=== PATIENT | female | born 1965 | race Caucasian/White ===

== ENCOUNTER 2016-08-11 03:57 | Emergency (ER) | payer MEDICAID ==
[~2016-08-11] VITALS: Ht 154.9 cm; Wt 70.5 kg
[2016-08-11 04:01] VITALS: Ht 154.9 cm; Wt 70.5 kg
[2016-08-11] MEDS ORDERED: CYCLOBENZAPRINE 10 MG TAB PO ONE (04:30)
[2016-08-11] MEDS ORDERED: HYDROCODONE/APAP (5/325) TAB PO ONE (04:30)
[2016-08-11] MEDS ORDERED: IBUP-1542 PO ×2 (04:31→05:02)
--- NOTE | 2016-08-11 04:34 | ERD ---
ER Documentation Chief Complaint Date/Time DATE: 08/11/16 TIME: 04:30 Chief Complaint C/O LOWER BACK PAIN SINCE THURSDAY HPI 51-year-old female presents here in emergency department for complaint of lower back pain started 4 days ago. Patient describes the pain as throbbing pain, 6/ 10 scale, is accompanied with muscle spasms. Patient states it is worse upon movement. Patient denies any numbness or tingling. Patient denies any incontinence. Patient ate any trauma and affected area. Patient denies any hematuria or dysuria. Patient denies any abdominal pain. Patient denies any nausea vomiting. Patient denies any constipation. Patient took ibuprofen for pain with mild relief. ROS All systems reviewed and are negative except as per history of present illness. Medications Home Meds Active Scripts Cyclobenzaprine Hcl* (Cyclobenzaprine Hcl*) 10 Mg Tablet, 10 MG PO TID, #15 TAB Prov:TODD JEFFERS WRAPPER SIZER 08/11/16 Ibuprofen* (Motrin*) 600 Mg Tab, 600 MG PO Q6H Y for PAIN AND OR ELEVATED TEMP, #30 TAB Prov:TODD JEFEFRS WRAPPER SIZER 08/11/16 Hydrocodone/Acetaminophen ([place] 5-325 Tablet) 1 Each Tablet, 1 TAB PO Q6H Y for PAIN, #20 TAB Prov:TODD JEFFERS WRAPPER SIZER 08/11/16 Reported Medications Ibuprofen* (Motrin*) Unknown Strength Tab, PO Q6H Y for PAIN AND OR ELEVATED TEMP, #30 TAB 08/11/16 Allergies Allergies: Coded Allergies: No Known Drug Allergies (Verified Allergy, Unknown, 09/04/15) PMhx/Soc History of Surgery: Yes ( section) Anesthesia Reaction: No Hx Neurological Disorder: No Hx Respiratory Disorders: No Hx Cardiac Disorders: No Hx Psychiatric Problems: No Hx Miscellaneous Medical Probl: No Hx Alcohol Use: No Hx Substance Use: No Hx Tobacco Use: No FmHx Family History: No coronary disease, No diabetes, No other Physical Exam Vitals Vital Signs Date Time Temp Pulse Resp B/P Pulse Ox O2 Delivery O2 Flow Rate FiO2 08/11/16 04:01 98.4 77 20 113/61 98 Physical Exam GENERAL: The patient is well developed and appropriate for usual state of health, in no apparent distress. CHEST: Clear to auscultation bilaterally. There are no rales, wheezes or rhonchi. HEART: Regular rate and rhythm. No murmurs, clicks, rubs or gallops. No S3 or S4. ABDOMEN: Soft, nontender and nondistended. Good bowel sounds. No rebound or guarding. No gross peritonitis. No gross organomegaly or masses. No Torres sign or McBurney point tenderness. BACK: No midline or flank tenderness. Muscle spasms noted in the paraspinal aspect of the lumbar spine. Patient is able to do full range of motion without any restriction. EXTREMITIES: Equal pulses bilaterally. There is no peripheral clubbing, cyanosis or edema. No focal swelling or erythema. Full range of motion. Grossly neurovascularly intact. NEURO: Alert and oriented. Cranial nerves 2-12 intact. Motor strength in all 4 extremities with 5/5 strength. Sensation grossly intact. Normal speech and gait. SKIN: There is no apparent rash or petechia. The skin is warm and dry. HEMATOLOGIC AND LYMPHATIC: There is no evidence of excessive bruising or lymphedema. No gross cervical, axillary, or inguinal lymphadenopathy. Results 24 hrs Laboratory Tests Test 08/11/16 04:44 Bedside Urine Blood Trace-intact Bedside Urine Glucose (UA) Negative Bedside Urine Ketones (LAB) Negative Bedside Urine Leukocyte Esterase (L Negative Bedside Urine Nitrite (LAB) Negative Bedside Urine Protein (LAB) Negative Bedside Urine pH (LAB) 6.0 Current Medications Medications (Trade) Dose Ordered Sig/Leandro Route PRN Reason Start Time Stop Time Status Last Admin Dose Admin Acetaminophen/ Hydrocodone Bitart ([place] (5/325)) 1 tab ONCE ONCE PO 08/11/16 04:30 08/11/16 04:32 DC 08/11/16 04:48 Cyclobenzaprine HCl (Flexeril) 10 mg ONCE ONCE PO 08/11/16 04:30 08/11/16 04:32 DC 08/11/16 04:48 Patient was given medication for pain here in emergency department, after treatment, patient verbalized feeling much better. Patient's pain is improved. Flexeril was given for muscle spasms. Urine test is negative. Procedures/MDM Medical Decision Making: Patient's pain is most likely consistent with a back muscle strain. There is no suspicion for neurovascular compromise. Patient has intact sensation and circulation of the affected extremity. There is low suspicion for septic arthritis. Patient does not have any fever. Radiology exam is not indicated at this time, patient did not have any injury in the back. MRI outpatient is appropriate it continues to persist.no symptoms of acute bacterial infection, epidural hematoma, epidural abscess, in order equinus syndrome. No symptoms of incontinence. Disposition: Home. Patient is given prescription for ibuprofen for pain, [place] for severe pain, Flexeril for muscle spasms. Patient was advised to avoid heavy lifting, rest, warm compresses in the back. Patient was advised that if symptoms are worse, numbness, tingling, high fever, unable to move joint, worsening symptoms, to return to emergency department immediately. Otherwise, patient is advised to follow up with the primary care doctor in 5-7 days for reevaluation of symptoms. Outpatient MRI if appropriate for further evaluation of the back pain is continues to persist. Departure Diagnosis: Primary Impression: Back pain Back pain location: low back pain Chronicity: acute Back pain laterality: bilateral Sciatica presence: without sciatica Qualified Code: M54.5 - Acute bilateral low back pain without sciatica Condition: Stable Patient Instructions: Back Pain (Acute Or Chronic) Additional Instructions: Patient is given prescription for ibuprofen for pain, [place] for severe pain, Flexeril for muscle spasms. Patient was advised to avoid heavy lifting, rest, warm compresses in the back. Patient was advised that if symptoms are worse, numbness, tingling, high fever, unable to move joint, worsening symptoms, to return to emergency department immediately. Otherwise, patient is advised to follow up with the primary care doctor in 5-7 days for reevaluation of symptoms. Outpatient MRI if appropriate for further evaluation of the back pain is continues to persist. TODD JEFFERS NP Aug 11, 2016 04:34
[2016-08-11 04:44] LABS: URINE BLOOD (Dip) POC Trace-intact (NEGATIVE)
[2016-08-11] MEDS ORDERED: CYCL-319 PO (05:02)
[2016-08-11] MEDS ORDERED: HYDR-906 PO (05:02)
== END 2016-08-11 05:11 | disposition home or self-care (01) ==
LOC: FTE 03:57
DX: M54.5 Low back pain (principal)
CPT/HCPCS: 81003; Z7610; 99284

== ENCOUNTER 2017-04-23 15:04 | Emergency (ER) | payer MEDICAID ==
[~2017-04-23] VITALS: Ht 160 cm; Wt 68.0 kg
[~2017-04-23 15:04] MED LIST: CYCL-319 PO; HYDR-906 PO; IBUP-1542 PO
[2017-04-23 15:11] VITALS: Ht 160 cm; Wt 68.0 kg
[2017-04-23 16:05] LABS: URINE BLOOD (Dip) POC 3+ (NEGATIVE)
[2017-04-23] MEDS ORDERED: PHEN-538 PO (16:40)
[2017-04-23] MEDS ORDERED: CEPH-443 PO (16:40)
[2017-04-23] MEDS ORDERED: CEPHALEXIN 500 MG CAP PO ONE (17:00)
[2017-04-23] MEDS ORDERED: PHENAZOPYRIDINE 100 MG TAB PO ONE (17:00)
[2017-04-23] MEDS ORDERED: IBUPROFEN 600 MG TAB PO ONE (17:00)
--- NOTE | 2017-04-23 17:01 | ERD ---
ER Documentation Chief Complaint Date/Time DATE: 04/23/17 TIME: 16:58 Chief Complaint PAINFUL URINATION WITH PELVIC PAIN HPI This 52-year-old female presents with 2 day history of suprapubic pain and dysuria and urinary frequency. She denies any fevers, vomiting, right or left abdominal pain. Patient never had previous history of UTI. Patient denies .Patient denies vaginal discharge ROS All systems reviewed and are negative except as per history of present illness. Medications Home Meds Active Scripts Phenazopyridine Hcl* (Pyridium*) 200 Mg Tab, 200 MG PO TID Y for URINARY PAIN, # 6 TAB Prov:NEHEMIAH DRIVER MD 04/23/17 Cephalexin* (Keflex*) 500 Mg Capsule, 500 MG PO QID for 5 Days, CAP Prov:NEHEMIAH DRIVER MD 04/23/17 Ibuprofen* (Motrin*) 600 Mg Tab, 600 MG PO Q6H Y for PAIN AND OR ELEVATED TEMP, #20 TAB Prov:JOSE MENDEZ MD 10/11/16 Cyclobenzaprine Hcl* (Cyclobenzaprine Hcl*) 10 Mg Tablet, 10 MG PO TID, #15 TAB Prov:TODD JEFFERS HIDE SPLITTER 08/11/16 Ibuprofen* (Motrin*) 600 Mg Tab, 600 MG PO Q6H Y for PAIN AND OR ELEVATED TEMP, #30 TAB Prov:TODD JEFFERS HIDE SPLITTER 08/11/16 Hydrocodone/Acetaminophen ([place] 5-325 Tablet) 1 Each Tablet, 1 TAB PO Q6H Y for PAIN, #20 TAB Prov:TODD JEFFERS HIDE SPLITTER 08/11/16 Reported Medications Ibuprofen* (Motrin*) Unknown Strength Tab, PO Q6H Y for PAIN AND OR ELEVATED TEMP, #30 TAB 08/11/16 Allergies Allergies: Coded Allergies: No Known Drug Allergies (Verified Allergy, Unknown, 09/04/15) PMhx/Soc History of Surgery: Yes ( section) Anesthesia Reaction: No Hx Neurological Disorder: No Hx Respiratory Disorders: No Hx Cardiac Disorders: No Hx Psychiatric Problems: No Hx Miscellaneous Medical Probl: Yes (HIGH CHOLESTEROL ) Hx Alcohol Use: No Hx Substance Use: No Hx Tobacco Use: No Smoking Status: Never smoker Physical Exam Vitals Vital Signs Date Time Temp Pulse Resp B/P Pulse Ox O2 Delivery O2 Flow Rate FiO2 04/23/17 15:11 98.3 79 16 116/68 97 Physical Exam Const: []Alert, [id number] per Head: Atraumatic Eyes: Normal Conjunctiva ENT: Normal External Ears, Nose and Mouth. Neck: Full range of motion..~ No meningismus. Resp: Clear to auscultation bilaterally Cardio: Regular rate and rhythm, no murmurs Abd: Soft,Minimal suprapubic tenderness. No tenderness at McBurney's point no Torres sign. No rebound. No pain with ambulation., non distended. Normal bowel sounds Skin: No petechiae or rashes Back: No midline or flank tenderness Ext: No cyanosis, or edema Neur: Awake and alert Psych: Normal Mood and Affect Results 24 hrs Laboratory Tests Test 04/23/17 16:12 Bedside Urine pH (LAB) 5.5 Bedside Urine Protein (LAB) 2+ Bedside Urine Glucose (UA) Negative Bedside Urine Ketones (LAB) Negative Bedside Urine Blood 3+ Bedside Urine Nitrite (LAB) Negative Bedside Urine Leukocyte Esterase (L 3+ Current Medications Medications (Trade) Dose Ordered Sig/Leandro Route PRN Reason Start Time Stop Time Status Last Admin Dose Admin Cephalexin (Keflex) 500 mg ONCE ONCE PO 04/23/17 17:00 04/23/17 17:01 04/23/17 16:53 Phenazopyridine HCl (Pyridium) 200 mg ONCE ONCE PO 04/23/17 17:00 04/23/17 17:01 04/23/17 16:53 Ibuprofen (Motrin) 600 mg ONCE ONCE PO 04/23/17 17:00 04/23/17 17:01 04/23/17 16:53 Procedures/MDM And shows positive hemoglobin and leukocytes. Nitrates are negative. Patient was given Keflex 500 mg, Pyridium 200 mg and ibuprofen 600 mg of mouth. Patient presents with signs and symptoms consistent with acute cystitis. Current signs and symptoms do not suggest PID, tubo-ovarian abscess, appendicitis, sepsis, pyelonephritis. Patient was discharged home with prescription of Keflex and Pyridium, instructions for fluids and return precautions and primary care follow-up. The patient was stable with no new complaints during the ER course. Clinically, there is no current evidence to suggest meningitis, sepsis, acute abdomen, pneumonia, acute coronary syndrome, pulmonary embolism, or any other emergent condition appearing to require further evaluation or hospitalization. The patient should certainly return for any new or worsening symptoms per the aftercare instructions. They should otherwise follow-up with her primary care doctor for reevaluation this week. Departure Diagnosis: Primary Impression: UTI (urinary tract infection) Urinary tract infection type: acute cystitis Hematuria presence: without hematuria Qualified Code: N30.00 - Acute cystitis without hematuria Condition: Stable Patient Instructions: Understanding Urinary Tract Infections (UTIs) Additional Instructions: ORINA TIENE INFECCION.Examines normal hoy. Cheque otro vez con talbot doctor primario en el proximo lezama or regresa para mas o nueva simptomas. NEHEMIAH DRIVER MD Apr 23, 2017 17:01
== END 2017-04-23 17:00 | disposition home or self-care (01) ==
LOC: FTE 15:04
DX: N30.00 Acute cystitis without hematuria (principal); R10.2 Pelvic and perineal pain
CPT/HCPCS: 81003; Z7502; Z7610; 99283

== ENCOUNTER 2017-06-23 13:43 | Emergency (ER) | payer MEDICAID ==
[~2017-06-23] VITALS: Ht 162.6 cm; Wt 67.0 kg
[~2017-06-23 13:43] MED LIST changes: +CEPH-443 PO; +PHEN-538 PO
[2017-06-23 13:47] VITALS: Ht 162.6 cm; Wt 67.0 kg
[2017-06-23] MEDS ORDERED: IBUPROFEN 600 MG TAB PO ONE (14:30)
[2017-06-23] MEDS ORDERED: IBUP-1542 PO (14:32)
[2017-06-23] MEDS ORDERED: AMOX500C2 PO (14:32)
--- NOTE | 2017-06-23 14:35 | ERD ---
ER Documentation Chief Complaint Chief Complaint ST AND BODY ACHES X 4 DAYS, REPORTS FEVERS AT HOME BUT NO THERMOMETER? HPI 52-year-old female presents with sore throat and fever and body aches for the last 4 days. She denies cough, vomiting, abdominal pain, urinary complaints, additional symptoms. ROS All systems reviewed and are negative except as per history of present illness. Medications Home Meds Active Scripts Ibuprofen* (Motrin*) 600 Mg Tab, 600 MG PO Q6, #20 TAB Prov:NEHEMIAH DRIVER MD 06/23/17 Amoxicillin* (Amoxicillin*) 500 Mg Cap, 500 MG PO TID for 10 Days, CAP Prov:NEHEMIAH DRIVER MD 06/23/17 Phenazopyridine Hcl* (Pyridium*) 200 Mg Tab, 200 MG PO TID Y for URINARY PAIN, # 6 TAB Prov:NEHEMIAH DRIVER MD 04/23/17 Cephalexin* (Keflex*) 500 Mg Capsule, 500 MG PO QID for 5 Days, CAP Prov:NEHEMIAH DRIVER MD 04/23/17 Ibuprofen* (Motrin*) 600 Mg Tab, 600 MG PO Q6H Y for PAIN AND OR ELEVATED TEMP, #20 TAB Prov:JOSE MENDEZ MD 10/11/16 Cyclobenzaprine Hcl* (Cyclobenzaprine Hcl*) 10 Mg Tablet, 10 MG PO TID, #15 TAB Prov:TODD JEFFERS NP 08/11/16 Ibuprofen* (Motrin*) 600 Mg Tab, 600 MG PO Q6H Y for PAIN AND OR ELEVATED TEMP, #30 TAB Prov:TODD JEFFERS NP 08/11/16 Hydrocodone/Acetaminophen ([place] 5-325 Tablet) 1 Each Tablet, 1 TAB PO Q6H Y for PAIN, #20 TAB Prov:TODD JEFFERS NP 08/11/16 Reported Medications Ibuprofen* (Motrin*) Unknown Strength Tab, PO Q6H Y for PAIN AND OR ELEVATED TEMP, #30 TAB 08/11/16 Allergies Allergies: Coded Allergies: No Known Drug Allergies (Verified Allergy, Unknown, 09/04/15) PMhx/Soc History of Surgery: Yes ( section) Anesthesia Reaction: No Hx Neurological Disorder: No Hx Respiratory Disorders: No Hx Cardiac Disorders: No Hx Psychiatric Problems: No Hx Miscellaneous Medical Probl: Yes (HIGH CHOLESTEROL ) Hx Alcohol Use: No Hx Substance Use: No Hx Tobacco Use: No Physical Exam Vitals Vital Signs Date Time Temp Pulse Resp B/P Pulse Ox O2 Delivery O2 Flow Rate FiO2 06/23/17 13:47 99.1 98 18 107/68 98 Physical Exam Const: [] Alert, [id number]. Head: Atraumatic Eyes: Normal Conjunctiva ENT: Normal External Ears, Nose and Mouth. 3+ with erythema and exudate. Airway patent uvula midline. Tender anterior cervical lymphadenitis. Neck: Full range of motion..~ No meningismus. Resp: Clear to auscultation bilaterally Cardio: Regular rate and rhythm, no murmurs Abd: Soft, non tender, non distended. Normal bowel sounds Skin: No petechiae or rashes Back: No midline or flank tenderness Ext: No cyanosis, or edema Neur: Awake and alert Psych: Normal Mood and Affect Results 24 hrs Current Medications Medications (Trade) Dose Ordered Sig/Leandro Route PRN Reason Start Time Stop Time Status Last Admin Dose Admin Ibuprofen (Motrin) 600 mg ONCE ONCE PO 06/23/17 14:30 06/23/17 14:31 DC Procedures/MDM Presents with signs of acute exudative pharyngitis without evidence of abscess or airway obstruction or sepsis. She will treated with amoxicillin ibuprofen, primary care follow-up and return precautions. The patient was stable with no new complaints during the ER course. Clinically, there is no current evidence to suggest meningitis, sepsis, acute abdomen, pneumonia, acute coronary syndrome , pulmonary embolism, or any other emergent condition appearing to require further evaluation or hospitalization. The patient should certainly return for any new or worsening symptoms per the aftercare instructions. They should otherwise follow-up with her primary care doctor for reevaluation this week. Departure Diagnosis: Primary Impression: Pharyngitis Pharyngitis/tonsillitis etiology: unspecified etiology Qualified Code: J02.9 - Pharyngitis, unspecified etiology Condition: Stable Patient Instructions: Pharyngitis, Strep (Presumed) Additional Instructions: Cheque otro vez con talbot doctor primario en el proximo lezama or regresa para mas o nueva simptomas. NEHEMIAH DRIVER MD Jun 23, 2017 14:35
== END 2017-06-23 15:23 | disposition home or self-care (01) ==
LOC: FTE 13:43
DX: J02.9 Acute pharyngitis, unspecified (principal)
CPT/HCPCS: Z7502; Z7610; 99283

== ENCOUNTER 2017-07-16 06:10 | Emergency (ER) | payer MEDICAID ==
[~2017-07-16] VITALS: Ht 154.9 cm; Wt 66.5 kg
[~2017-07-16 06:10] MED LIST changes: +AMOX500C2 PO
[2017-07-16 06:18] VITALS: Ht 154.9 cm; Wt 66.5 kg
[2017-07-16] MEDS ORDERED: predniSONE 20 MG TAB PO ONE (07:00)
[2017-07-16] MEDS ORDERED: IBUPROFEN 600 MG TAB PO ONE (07:00)
[2017-07-16 07:11] LABS: BASOPHILS % 0.2 % (0.0-2.0); EOSINOPHILS # 0.1 10^3/ul (0.0-0.5); HEMATOCRIT 40.1 % (37.0-47.0); HEMOGLOBIN 13.5 g/dl (12.0-16.0); LYMPHOCYTES # 1.6 10^3/ul (0.8-2.9); LYMPHOCYTES % 16.5 % (15.0-51.0); MEAN CORPUSCULAR HEMOGLOBIN 29.5 pg (29.0-33.0); MEAN CORPUSCULAR HGB CONC 33.7 g/dl (32.0-37.0); MEAN CORPUSCULAR VOLUME 87.6 fl (82.0-101.0); MEAN PLATELET VOLUME 9.4 fl (7.4-10.4); MONOCYTE # 0.6 10^3/ul (0.3-0.9); MONOCYTES % 6.4 % (0.0-11.0); NEUTROPHIL # 7.1 10^3/ul (1.6-7.5); NEUTROPHILS % 75.7 % (39.0-77.0); PLATELET COUNT 249 10^3/UL (140-415); RED BLOOD COUNT 4.58 10^6/ul (4.20-5.40); RED CELL DISTRIBUTION WIDTH 12.1 % (11.5-14.5); WHITE BLOOD COUNT 9.4 10^3/ul (4.8-10.8)
[2017-07-16] MEDS ORDERED: AZITHROMYCIN 250 MG TAB PO ONE (07:30)
[2017-07-16 07:38] LABS: ALBUMIN 3.9 g/dl (3.3-4.9); ALBUMIN/GLOBULIN RATIO 1.21; BILIRUBIN,INDIRECT 0.4 mg/dl (0-1.1); BILIRUBIN,TOTAL 0.4 mg/dl (0.2-1.3); CALCIUM 9.2 mg/dl (8.4-10.2); CREATININE 0.68 mg/dl (0.44-1.00); POTASSIUM 3.9 mmol/L (3.5-5.1); TOTAL PROTEIN 7.1 g/dl (6.1-8.1)
[2017-07-16] MEDS ORDERED: IBUP-1542 PO (07:54)
[2017-07-16] MEDS ORDERED: PRED20TA PO (07:54)
[2017-07-16] MEDS ORDERED: AZIT500T3 PO (07:54)
--- NOTE | 2017-07-16 07:58 | ERD ---
ER Documentation Chief Complaint Chief Complaint c/o sore throat and on and off fever x3 weeks, was on antbx HPI This 52-year-old female complains of sore throat for last 3 weeks. She was treated with amoxicillin 3 weeks ago and complains of persistent symptoms. She is subjective fever at home and no fever triage. She denies cough, vomiting, abdominal pain, diarrhea. ROS All systems reviewed and are negative except as per history of present illness. Medications Home Meds Active Scripts Ibuprofen* (Motrin*) 600 Mg Tab, 600 MG PO Q6, #15 TAB Prov:NEHEMIAH DRIVER MD 07/16/17 Prednisone* (Prednisone*) 20 Mg Tab, 40 MG PO DAILY for 4 Days, TAB Start July 17, 2017 Prov:NEHEMIAH DRIVER MD 07/16/17 Azithromycin* (Zithromax*) 500 Mg Tablet, 500 MG PO DAILY for 5 Days, TAB Prov:NEHEMIAH DRIVER MD 07/16/17 Ibuprofen* (Motrin*) 600 Mg Tab, 600 MG PO Q6, #20 TAB Prov:NEHEMIAH DRIVER MD 06/23/17 Amoxicillin* (Amoxicillin*) 500 Mg Cap, 500 MG PO TID for 10 Days, CAP Prov:NEHEMIAH DRIVER MD 06/23/17 Phenazopyridine Hcl* (Pyridium*) 200 Mg Tab, 200 MG PO TID Y for URINARY PAIN, # 6 TAB Prov:NEHEMIAH DRIVER MD 04/23/17 Cephalexin* (Keflex*) 500 Mg Capsule, 500 MG PO QID for 5 Days, CAP Prov:NEHEMIAH DRIVER MD 04/23/17 Ibuprofen* (Motrin*) 600 Mg Tab, 600 MG PO Q6H Y for PAIN AND OR ELEVATED TEMP, #20 TAB Prov:JOSE MENDEZ MD 10/11/16 Cyclobenzaprine Hcl* (Cyclobenzaprine Hcl*) 10 Mg Tablet, 10 MG PO TID, #15 TAB Prov:TODD JEFFERS NP 08/11/16 Ibuprofen* (Motrin*) 600 Mg Tab, 600 MG PO Q6H Y for PAIN AND OR ELEVATED TEMP, #30 TAB Prov:TODD JEFFERS NP 08/11/16 Hydrocodone/Acetaminophen ([place] 5-325 Tablet) 1 Each Tablet, 1 TAB PO Q6H Y for PAIN, #20 TAB Prov:TODD JEFFERS MARCUS TDevin LAP WELDER 08/11/16 Reported Medications Ibuprofen* (Motrin*) Unknown Strength Tab, PO Q6H Y for PAIN AND OR ELEVATED TEMP, #30 TAB 08/11/16 Allergies Allergies: Coded Allergies: No Known Drug Allergies (Verified Allergy, Unknown, 09/04/15) PMhx/Soc History of Surgery: Yes ( section) Anesthesia Reaction: No Hx Neurological Disorder: No Hx Respiratory Disorders: No Hx Cardiac Disorders: No Hx Psychiatric Problems: No Hx Miscellaneous Medical Probl: Yes (HIGH CHOLESTEROL ) Hx Alcohol Use: No Hx Substance Use: No Hx Tobacco Use: No Smoking Status: Never smoker Physical Exam Vitals Vital Signs Date Time Temp Pulse Resp B/P Pulse Ox O2 Delivery O2 Flow Rate FiO2 07/16/17 06:18 99.6 86 18 124/74 98 Physical Exam Const: [] Alert, [id number]. Head: Atraumatic Eyes: Normal Conjunctiva ENT: Normal External Ears, Nose and Mouth. TMs normal. Tonsils 3+ with erythema and slight exudate. Uvula midline. Neck: Full range of motion..~ No meningismus. Resp: Clear to auscultation bilaterally Cardio: Regular rate and rhythm, no murmurs Abd: Soft, non tender, non distended. Normal bowel sounds Skin: No petechiae or rashes Back: No midline or flank tenderness Ext: No cyanosis, or edema Neur: Awake and alert Psych: Normal Mood and Affect Result Diagram: 07/16/17 0656 07/16/17 0656 Results 24 hrs Laboratory Tests Test 07/16/17 06:56 White Blood Count 9.410^3/ul Red Blood Count 4.5810^6/ul Hemoglobin 13.5g/dl Hematocrit 40.1% Mean Corpuscular Volume 87.6fl Mean Corpuscular Hemoglobin 29.5pg Mean Corpuscular Hemoglobin Concent 33.7g/dl Red Cell Distribution Width 12.1% Platelet Count 28511^3/UL Mean Platelet Volume 9.4fl Neutrophils % 75.7% Lymphocytes % 16.5% Monocytes % 6.4% Eosinophils % 1.0% Basophils % 0.2% Nucleated Red Blood Cells % 0.0/100WBC Neutrophils # 7.110^3/ul Lymphocytes # 1.610^3/ul Monocytes # 0.610^3/ul Eosinophils # 0.110^3/ul Basophils # 0.010^3/ul Nucleated Red Blood Cells # 0.010^3/ul Sodium Level 143mmol/L Potassium Level 3.9mmol/L Chloride Level 105mmol/L Carbon Dioxide Level 28mmol/L Anion Gap 14 Blood Urea Nitrogen 9mg/dl Creatinine 0.68mg/dl Glucose Level 94mg/dl Calcium Level 9.2mg/dl Total Bilirubin 0.4mg/dl Direct Bilirubin 0.00mg/dl Indirect Bilirubin 0.4mg/dl Aspartate Amino Transf (AST/SGOT) 17IU/L Alanine Aminotransferase (ALT/SGPT) 36IU/L Alkaline Phosphatase 80IU/L Total Protein 7.1g/dl Albumin 3.9g/dl Globulin 3.20g/dl Albumin/Globulin Ratio 1.21 Monoscreen Positive Current Medications Medications (Trade) Dose Ordered Sig/Leandro Route PRN Reason Start Time Stop Time Status Last Admin Dose Admin Prednisone (Prednisone) 40 mg ONCE ONCE PO 07/16/17 07:00 07/16/17 07:01 DC 07/16/17 06:45 Ibuprofen (Motrin) 600 mg ONCE ONCE PO 07/16/17 07:00 07/16/17 07:01 DC 07/16/17 06:44 Azithromycin (Zithromax) 500 mg ONCE ONCE PO 07/16/17 07:30 07/16/17 07:31 DC 07/16/17 07:35 Procedures/MDM Patient presents with signs of persistent pharyngitis. Monospot was positive. Strep screen was also positive. CBC and CMP show no acute abnormalities. Patient was given prednisone 40 mg of mouth, Zithromax 500 mg mouth and ibuprofen. Patient will be treated with Zithromax, short course prednisone and ibuprofen. There is no evidence of abscess, airway obstruction, sepsis, hepatitis or additional complications of presenting complaints. The patient was stable with no new complaints during the ER course. Clinically, there is no current evidence to suggest meningitis, sepsis, acute abdomen, pneumonia, acute coronary syndrome, pulmonary embolism, or any other emergent condition appearing to require further evaluation or hospitalization. The patient should certainly return for any new or worsening symptoms per the aftercare instructions. They should otherwise follow-up with her primary care doctor for reevaluation this week. Departure Diagnosis: Primary Impression: Strep pharyngitis Additional Impression: Mononucleosis Condition: Stable Patient Instructions: Strep Throat, Mononucleosis Additional Instructions: natasha infeccion en garganta ( virus y strep tambien) Cheque otro vez con talbot doctor primario en el proximo lezama or regresa para mas o nueva simptomas. NEHEMIAH DRIVER MD Jul 16, 2017 07:58
== END 2017-07-16 08:09 | disposition home or self-care (01) ==
LOC: FTE 06:10
DX: J02.0 Streptococcal pharyngitis (principal); B27.90 Infectious mononucleosis, unspecified without complication
CPT/HCPCS: 36415; 80053; 85025; 86308; 87880; J7512; Z7502; Z7610

== ENCOUNTER 2018-05-06 09:31 | Emergency (ER) | END 2018-05-06 10:54 | disposition home or self-care (01) ==